=== PATIENT | female | born 1970 | race Caucasian/White ===

== ENCOUNTER 2019-11-01 12:01 | Outpatient (CLI) | payer OTHER | END 2019-11-01 12:08 | disposition home or self-care (01) | LOC: SONOGRAMA 12:01 | PROVIDERS: ATTEND Pathology Anatomic Pathology & Clinical Pathology | DX: E04.1 Nontoxic single thyroid nodule (principal); R59.0 Localized enlarged lymph nodes ==

== ENCOUNTER 2022-10-21 10:35 | Outpatient (CLI) | payer OTHER | END 2022-10-21 10:37 | disposition home or self-care (01) | LOC: SONOGRAMA 10:35 | PROVIDERS: ATTEND Pathology Anatomic Pathology & Clinical Pathology | DX: D34 Benign neoplasm of thyroid gland (principal); E04.9 Nontoxic goiter, unspecified; E07.9 Disorder of thyroid, unspecified; E04.1 Nontoxic single thyroid nodule ==